=== PATIENT | female | born 1970 | race Caucasian/White ===

== ENCOUNTER → 2022-10-21 | Day surgery (SDC) | payer BC, OTHER ==
[~2022-10-21] MED LIST: AMBIEN10 MG PO; ASPIRIN81 MG PO; B-121000 MC2; BIOTIN1 MG; CYCLOBENZAPRINE5 MG PO; FEROSUL325 MG PO; LIDOCAINE HCL 2% LOCAL INJ 5 ML SDV VIAL INJ ONE; LORTAB 10 MG-3473 ML PO; LOSARTAN POTAS100 MG PO; LYRICA100 MG PO; MIDAZOLAM HCL 2 MG/2 ML VIAL ONE; MULTI-VITAMIN1 EACH PO; PROPOFOL IV EMULSION 10 MG/ML 20 ML VIAL ONE; VITAMIN D3 MA125 MCG; ZOLOFT100 MG PO
[2022-10-21 11:30] VITALS: BP 134/85
== END | disposition home or self-care (01) ==
LOC: OR 08:48
PROVIDERS: ATTEND Internal Medicine Gastroenterology
DX: D50.9 Iron deficiency anemia, unspecified (principal); K29.50 Unspecified chronic gastritis without bleeding; B96.81 Helicobacter pylori [H. pylori] as the cause of diseases classified elsewhere; K25.3 Acute gastric ulcer without hemorrhage or perforation; K31.89 Other diseases of stomach and duodenum; K63.89 Other specified diseases of intestine; K44.9 Diaphragmatic hernia without obstruction or gangrene; K62.5 Hemorrhage of anus and rectum; K64.8 Other hemorrhoids; I10 Essential (primary) hypertension; Q79.62 Hypermobile Ehlers-Danlos syndrome; Z88.8 Allergy status to other drugs, medicaments and biological substances; Z91.041 Radiographic dye allergy status; Z91.013 Allergy to seafood; Z01.810 Encounter for preprocedural cardiovascular examination; Z79.82 Long term (current) use of aspirin; Z79.899 Other long term (current) drug therapy; Z79.1 Long term (current) use of non-steroidal anti-inflammatories (NSAID); Z68.35 Body mass index [BMI] 35.0-35.9, adult; Z83.79 Family history of other diseases of the digestive system
CPT/HCPCS: 43239; 45378; 81025; 88305; 88342; 93005; J2001; J2250; J2704; 88304; 88312